=== PATIENT | male | born 1970 | race Asian ===

== ENCOUNTER 2020-08-15 12:49 | Emergency (ER) | payer OTHER | END 2020-08-15 13:45 | disposition home or self-care (01) | DX: N39.0 Urinary tract infection, site not specified (principal); I10 Essential (primary) hypertension; E78.5 Hyperlipidemia, unspecified; N40.0 Benign prostatic hyperplasia without lower urinary tract symptoms ==

== ENCOUNTER 2021-06-17 13:45 | Emergency (ER) | payer OTHER ==
[~2021-06-17] VITALS: Ht 172.7 cm; Wt 90.7 kg
--- NOTE | 2021-06-17 14:05 | NUR ---
PT TO ER BED 10 C/O ABDOMINAL DISCOMFORT. CONSTIPATION, NO BM X 3 DAYS. STATES TOOK MAG CITRATE TODAY W/ NO RELIEF. STABLE VITALS. NAD NOTED. AWAITING MD RENTERIA.
--- NOTE | 2021-06-17 14:07 | NUR ---
DR ALMEIDA AT BEDSIDE FOR EVAL.
--- NOTE | 2021-06-17 14:30 | NUR ---
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
[2021-06-17 14:34] LABS: BASOPHILS # (AUTO) 0.1 K/uL (0.0-0.2); BASOPHILS % (AUTO) 1.2 % (0.0-2.0); EOSINOPHILS % (AUTO) 1.3 % (0.0-6.0); HEMATOCRIT 44 % (39-51); HEMOGLOBIN 14.7 g/dL (13.5-17.5); LYMPHOCYTES # (AUTO) 1.7 K/uL (0.8-4.8); LYMPHOCYTES % (AUTO) 23.7 % (20.0-44.0); MEAN CORPUSCULAR HGB CONC 34 g/dl (31.0-36.0); MEAN CORPUSCULAR VOLUME 87 fL (80-96); MONOCYTES # (AUTO) 0.3 K/uL (0.1-1.30); MONOCYTES % (AUTO) 4.7 % (2.0-12.0); NEUTROPHILS % (AUTO) 69.1 % (43.0-81.0); PLATELET COUNT (AUTO) 258 K/uL (150-450); RED BLOOD CELL COUNT(AUTO) 5.02 MIL/uL (4.5-6.0); WHITE BLOOD COUNT (AUTO) 7.2 K/uL (4.3-11.0)
[2021-06-17 14:44] LABS: POTASSIUM 3.3 mmol/L (3.5-5.1)
[2021-06-17] MEDS ORDERED: MINERAL OIL 133 ML (PYXIS) 1 EA ENEMA RC ONE (14:51)
[2021-06-17] MEDS: MINERAL OIL 133 ML (PYXIS) 1 EA ENEMA RC ONE (15:03)
--- NOTE | 2021-06-17 15:26 | NUR ---
Patient does not wish to proceed with medical care recommended by Dr. Ramon. Patient given information related to possible complications, up to and including , which could occur as a result of leaving the hospital at this time. Patient verbalizes understanding of risks involved due to leaving against medical advice. Patient has signed AMA form.
[2021-06-17 15:31] VITALS: BP 146/80
[2021-06-17 16:26] LABS: BILIRUBIN,URINE Negative (NEGATIVE); COLOR,URINE YELLOW (YELLOW); LEUKOCYTE ESTERASE ,URINE Negative (NEGATIVE); NITRITE, URINE Negative (NEGATIVE); PROTEIN,URINE Negative (NEGATIVE); UGLUCOSE Negative (NEGATIVE); UROBILINOGEN,URINE 0.2 EU/dL (0.2)
[2021-06-17 16:46] LABS: BACTERIA,URINE Few /HPF (None Seen); SQUAMOUS EPITHELIAL CELL,UR Few /HPF (None Seen); WBC,URINE 0-2 /HPF (0-3)
== END 2021-06-17 15:31 | disposition left against medical advice (07) ==
LOC: ER 14:34
DX: R14.0 Abdominal distension (gaseous) (principal); R33.9 Retention of urine, unspecified; I10 Essential (primary) hypertension; E78.5 Hyperlipidemia, unspecified
CPT/HCPCS: 36415; 74021; 80048-TC; 81001; 85025-TC

== ENCOUNTER 2021-11-30 11:15 | Emergency (ER) | payer OTHER ==
[~2021-11-30] VITALS: Ht 175.3 cm; Wt 86.2 kg
[2021-11-30 11:28] VITALS: BP 165/99
[2021-11-30] MEDS ORDERED: NA PHOS,M-B/NA PHOS,DI-BA 1 EA ENEMA RC ONE ×3 (11:47→12:20)
--- NOTE | 2021-11-30 12:37 | NUR ---
Patient discharged to home in stable condition. Written and verbal after care instructions given. Patient verbalizes understanding of instruction.
== END 2021-11-30 12:38 | disposition home or self-care (01) ==
LOC: ER 11:18
DX: K59.00 Constipation, unspecified (principal); R10.84 Generalized abdominal pain; I10 Essential (primary) hypertension; E78.5 Hyperlipidemia, unspecified

== ENCOUNTER 2023-08-16 10:54 | Emergency (ER) | payer OTHER ==
[~2023-08-16] VITALS: Ht 172.7 cm; Wt 90.7 kg
[2023-08-16] MEDS ORDERED: POLY17PO4 PO (11:34)
[2023-08-16] MEDS ORDERED: DOCU-141 PO (11:34)
[2023-08-16 11:51] VITALS: BP 150/92; TEMP 98.1; O2SAT 98
== END 2023-08-16 11:51 | disposition home or self-care (01) ==
LOC: ER 11:02
DX: K59.00 Constipation, unspecified (principal); R33.9 Retention of urine, unspecified; I10 Essential (primary) hypertension; E78.5 Hyperlipidemia, unspecified